=== PATIENT | female | born 1995 | race Caucasian/White ===

== ENCOUNTER 2017-12-05 14:29 | Inpatient (IN) | payer OTHER ==
[~2017-12-05] VITALS: Ht 157.5 cm; Wt 63.0 kg
[2017-12-10] MEDS ORDERED: CIPRO500 MG PO (09:27)
[2017-12-10] MEDS ORDERED: OMEPRAZOLE40 MG PO (09:28)
[2017-12-10] MEDS ORDERED: METRONIDAZOLE500 MG PO (09:28)
== END 2017-12-10 11:13 | disposition home or self-care (01) | DRG 392 ==
LOC: ER 14:29 → MEDI 12-06 09:57 → SEC-K 12-06 09:57 → MEDI 12-06 18:40
PROC: BW21Y0Z Computerized Tomography (CT Scan) of Abdomen and Pelvis using Other Contrast, Unenhanced and Enhanced (ICD-10-PCS; principal; 2017-12-06)
PROC: BF37ZZZ Magnetic Resonance Imaging (MRI) of Pancreas (ICD-10-PCS; 2017-12-06)
PROC: CF1C1ZZ Planar Nuclear Medicine Imaging of Hepatobiliary System, All using Technetium 99m (Tc-99m) (ICD-10-PCS; 2017-12-06)
DX: K52.3 Indeterminate colitis (principal); K29.00 Acute gastritis without bleeding